=== PATIENT | female | born 1985 | race Hispanic/Latino ===

== ENCOUNTER 2021-10-31 13:58 | Emergency (ER) | payer SELFPAY ==
--- OUTSIDE RECORDS SUMMARY | 2021-10-31 14:01 | XMS REPORT | Continuity of Care Document ---
:1985 Author Organization [facility] t Address [address] [place] [address] [address] [place] [address] Care Team Providers Name Role Phone DR SALINAS ORTIZ Attending Clinician Unavailable NICOLE GONZALEZ Attending Clinician Unavailable ELIZABETH LLOYD Admitting Clinician Unavailable LISA Admitting Clinician Unavailable Problems This patient has no known problems. Allergies, Adverse Reactions, Alerts This patient has no known allergies or adverse reactions. Medications This patient has no known medications. Procedures This patient has no known procedures. Encounters Start End Encounter Admission Attending Care Care Encounter Source Date/Time Date/Time Type Type Clinicians Facility Department ID 2020-11-29 2020-11-29 [id number] 11:33:00 23:59:00 [facility] 2020-10-23 2020-10-23 Outpatient Janette ORTIZ [facility] MED [id number] 11:59:00 23:59:00 [facility] 2017-05-19 2017-05-19 Outpatient [facility] [id number] Access 00:00:00 00:00:00 H, PROVIDER Davin arguello 2017-05-18 2017-05-18 Outpatient [facility] [id number] Access 00:00:00 00:00:00 H, PROVIDER Davin arguello 2017-05-11 2017-05-11 Outpatient [facility] [id number] Access 00:00:00 00:00:00 H, PROVIDER Davin arguello 2011-05-29 2011-05-31 Inpatient Janette GONZALEZ Janette OB [id number] 20:45:00 [facility] This patient has no known results.
[2021-10-31] MEDS ORDERED: ONDANSETRON 4 MG/2 ML VIAL ONE (14:37)
[2021-10-31] MEDS ORDERED: MORPHINE 4 MG/ML SYR ONE (14:37)
[2021-10-31 14:39] LABS: Urine Blood 3+ (Negative); Urine Glucose Negative (Negative); Urine Protein 3+ (Negative); Urine pH 8.5 (5.0-7.0)
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
[2021-10-31 17:02] VITALS: TEMP 98
[2021-10-31 17:04] VITALS: BP 121/77; O2SAT 98
== END 2021-10-31 16:42 | disposition home or self-care (01) ==
LOC: ER 13:58
DX: S22.32XA Fracture of one rib, left side, initial encounter for closed fracture (principal); Y04.2XXA Assault by strike against or bumped into by another person, initial encounter; Y92.009 Unspecified place in unspecified non-institutional (private) residence as the place of occurrence of the external cause
CPT/HCPCS: 71250; 81003; 81025; 96374; 96375; 99284; J2405